=== PATIENT | female | born 1935 | race Caucasian/White ===

== ENCOUNTER → 2024-01-29 11:28 | Outpatient (REF) | payer MEDICARE, OTHER, SELFPAY | LOC: HWRAD 11:28 | PROVIDERS: ATTENDING PHYSICIAN Internal Medicine Critical Care Medicine; FAMILY PHYSICIAN Nurse Practitioner Adult Health | DX: R06.09 Other forms of dyspnea (principal) | CPT/HCPCS: 71250 ==

== ENCOUNTER 2024-08-20 06:11 | Day surgery (SDC) | payer MEDICARE, OTHER, SELFPAY ==
[2024-08-01 10:43] VITALS: BMI 29.0
[2024-08-01 10:45] LABS: Hematocrit 37.5 % (37.0-47.0); Hemoglobin 12.5 g/dL (12.0-16.0); Mean Corp Hgb Conc. 33.3 g/dL (33.0-37.0); Mean Corpuscular Hgb 30.6 pg (27.0-31.0); Mean Corpuscular Volume 91.7 fL (81.0-99.0); Mean Platelet Volume 10.3 fL (7.4-10.4); Platelet Count 251 10^3/uL (130-400); Red Blood Cell Count 4.09 10^6/uL (4.20-5.40); Red Cell Dist. Width 14.1 % (11.5-14.5); White Blood Cell Count 8.4 10^3/uL (4.8-10.8)
[2024-08-01 11:20] LABS: ALT (SGPT) 21 U/L (0-35); AST (SGOT) 27 U/L (14-36); Albumin 4.5 g/dl (3.5-5.0); Alkaline Phosphatase 65 U/L (38-126); Blood Urea Nitrogen 35 mg/dl (7-17); Carbon Dioxide 33 mmol/L (22-30); Chloride 100 mmol/L (98-107); Estimated Creatinine Clearance 45 ml/min; Glucose 84 mg/dl (70-99); Potassium 4.3 mmol/L (3.5-5.1); Sodium 143 mmol/L (135-145); Total Bilirubin 0.6 mg/dl (0.2-1.3); Total Protein 7.4 g/dl (6.3-8.2); eGFR > 60.00
[2024-08-01 11:46] LABS: Glycohemoglobin (HgbA1c) 5.2 % (4.0-5.6)
--- NOTE | 2024-08-06 15:14 | VNURNOTE ---
[facility] liaison called patient on both home and cell numbers. No answer. Left message requesting call back. SDS 08/20. Referral placed in [facility].
--- NOTE | 2024-08-06 15:27 | VNURNOTE ---
Patient is scheduled for an elective R GISSELL on 08/20/24- she is a same day patient with Dr Nance. Spoke with patient prior to surgery. Introduced role of [facility] Liaison. Patient reports that she lives alone in a rancher home.
No steps to enter, she has a ramp.
She has a raised toilet seat, cane and is obtaining a rolling walker and hip kit.
PCP is Dr Jes Miranda.
Discussed [facility] joint protocol and post surgical plans.
Reviewed that she will have VN services initially and will then start outpatient PT.
Patient has not scheduled outpatient PT yet.
Patient is in agreement with plan and states that her daughter will be home with her. Advised to bring RW day of surgery. Referral in [facility].
Plan: [facility] per [facility] joint protocol then outpt PT TBD
[2024-08-14 13:55] VITALS: BMI 29.0
[2024-08-20] VITALS (15 sets, daily range): BP systolic 83–156; BP diastolic 38–91; PULSE 99; O2SAT 98; BMI 29.0
[2024-08-20] MEDS: CELEBREX 200 MG PO (07:21)
[2024-08-20] MEDS: TYLENOL 650 MG PO (07:21)
--- NOTE | 2024-08-20 08:30 | W.DS.TRANS ---
DC Summary - Network Field Engineer
-
Discharge Instructions:
Discharge Diagnosis/Procedures R GISSELL Dr. Nance 08/20/24
Diet As tolerated
Activity With Walker
Driving Restrictions No driving
Bathing Restrictions OK to Shower
Instructions:
Stand-Alone Forms: SDS Total Hip and Knee D/C
Changes to Home Medications: Yes
Discharge Medications:
DC Medications w/original date entered in [facility]
amlodipine 5 mg tablet 5 mg PO DAILY 08/14/24
cholecalciferol (vitamin D3) 25 mcg (1,000 unit) tablet (Vitamin D3) 25 mcg PO DAILY 08/14/24
furosemide 40 mg tablet 40 mg PO DAILY 08/14/24
levothyroxine 75 mcg tablet 75 mcg PO QPM 08/14/24
metoprolol tartrate 25 mg tablet 25 mg PO BID 08/14/24
omeprazole 20 mg delayed release,disintegrating tablet 20 mg PO DAILY 08/14/24
simvastatin 10 mg tablet 10 mg PO Q48H 08/14/24
acetaminophen 500 mg tablet 1,000 mg (2 x 500 mg) PO QID #0 tabs 08/20/24
aspirin 325 mg tablet 325 mg PO DAILY blood clot prevention #1 tab 08/20/24
celecoxib 100 mg capsule 100 mg PO BID Anti-inflammatory #14 caps 08/20/24
dexamethasone 4 mg tablet 4 mg PO BID inflammation #6 tabs 08/20/24
docusate sodium 100 mg capsule (Colace) 100 mg PO BID stool softner #1 cap 08/20/24
losartan 100 mg tablet 100 mg PO DAILY #0 tabs 08/20/24
magnesium hydroxide 400 mg/5 mL oral suspension (Milk of Magnesia) 30 ml PO HS PRN Constipation #1 mL 08/20/24
mupirocin 2 % topical ointment 1 applic topical BID 08/20/24
ondansetron 4 mg disintegrating tablet 4 mg PO Q6H PRN n/v #20 tabs 08/20/24
oxycodone 5 mg tablet 5 mg PO Q6H PRN 1 tab moderate pain, 2 tabs severe pain #30 tabs 08/20/24
sennosides 8.6 mg tablet (Senokot) 17.2 mg (2 x 8.6 mg) PO BID laxative #2 tabs 08/20/24
Home Medication Changes
acetaminophen 500 mg tablet 1,000 mg (2 x 500 mg) PO QID #0 tabs 08/20/24
aspirin 325 mg tablet 325 mg PO DAILY blood clot prevention #1 tab 08/20/24
celecoxib 100 mg capsule 100 mg PO BID Anti-inflammatory #14 caps 08/20/24
dexamethasone 4 mg tablet 4 mg PO BID inflammation #6 tabs 08/20/24
docusate sodium 100 mg capsule (Colace) 100 mg PO BID stool softner #1 cap 08/20/24
losartan 100 mg tablet 100 mg PO DAILY #0 tabs 08/20/24
magnesium hydroxide 400 mg/5 mL oral suspension (Milk of Magnesia) 30 ml PO HS PRN Constipation #1 mL 08/20/24
mupirocin 2 % topical ointment 1 applic topical BID 08/20/24
ondansetron 4 mg disintegrating tablet 4 mg PO Q6H PRN n/v #20 tabs 08/20/24
oxycodone 5 mg tablet 5 mg PO Q6H PRN 1 tab moderate pain, 2 tabs severe pain #30 tabs 08/20/24
sennosides 8.6 mg tablet (Senokot) 17.2 mg (2 x 8.6 mg) PO BID laxative #2 tabs 08/20/24
Pending Results: No
[2024-08-20] MEDS: ANCEF 5 IV (12:39)
[2024-08-20] MEDS: TYLENOL 1000 MG PO (12:52)
== END 2024-08-20 13:30 | disposition home or self-care (01) ==
LOC: SDS 06:11
PROVIDERS: ATTENDING PHYSICIAN Orthopaedic Surgery; FAMILY PHYSICIAN Nurse Practitioner Adult Health; REFERRING PHYSICIAN Student in an Organized Health Care Education/Training Program
PROC: 0SR90JZ Replacement of Right Hip Joint with Synthetic Substitute, Open Approach (ICD-10-PCS; 2024-08-20)
DX: M16.11 Unilateral primary osteoarthritis, right hip (principal)
CPT/HCPCS: 27130; 36415; 73502; 80053; 83036; 85027; 87070; 97116; 97162; C1776

== ENCOUNTER → 2024-10-09 10:13 | Outpatient (REF) | payer MEDICARE, OTHER, SELFPAY | LOC: HWRCS 10:13 | PROVIDERS: ATTENDING PHYSICIAN Student in an Organized Health Care Education/Training Program; FAMILY PHYSICIAN Internal Medicine | DX: I35.0 Nonrheumatic aortic (valve) stenosis (principal) | CPT/HCPCS: 93306 ==

== ENCOUNTER → 2025-01-15 12:35 | Outpatient (REF) | payer MEDICARE, OTHER, SELFPAY ==
[2025-01-15 16:51] LABS: ALT (SGPT) 17 U/L (0-35); AST (SGOT) 23 U/L (14-36); Albumin 4.4 g/dl (3.5-5.0); Alkaline Phosphatase 63 U/L (38-126); Blood Urea Nitrogen 35 mg/dl (7-17); Carbon Dioxide 30 mmol/L (22-30); Chloride 105 mmol/L (98-107); Glucose 98 mg/dl (70-99); HDL Cholesterol 73 mg/dl; LDL Cholesterol, Calculated 69 mg/dl; Potassium 5.2 mmol/L (3.5-5.1); Sodium 144 mmol/L (135-145); Total Bilirubin 0.7 mg/dl (0.2-1.3); Total Cholesterol 161 mg/dl (50-199); Total Protein 7.2 g/dl (6.3-8.2); Triglyceride 98 mg/dl (10-149); Very Low Density Lipoprotein 19 mg/dl (0-30); eGFR 48.63
[2025-01-15 17:20] LABS: TSH 1.12 uIU/ml (0.47-4.68)
== END ==
LOC: HWRAD 12:35
PROVIDERS: ATTENDING PHYSICIAN Internal Medicine Critical Care Medicine; FAMILY PHYSICIAN Nurse Practitioner Adult Health
DX: R91.8 Other nonspecific abnormal finding of lung field (principal); E03.9 Hypothyroidism, unspecified; E78.2 Mixed hyperlipidemia
CPT/HCPCS: 36415; 71250; 80053; 80061; 84443

== ENCOUNTER → 2025-04-24 10:22 | Outpatient (REF) | payer MEDICARE, OTHER, SELFPAY ==
[2025-04-24 11:42] LABS: Hematocrit 33.0 % (37.0-47.0); Hemoglobin 11.3 g/dL (12.0-16.0); Mean Corp Hgb Conc. 34.2 g/dL (33.0-37.0); Mean Corpuscular Volume 90.7 fL (81.0-99.0); Nucleated Red Blood Cells % 0 %; Platelet Count 245 10^3/uL (130-400); Red Cell Dist. Width 14.2 % (11.5-14.5)
[2025-04-24 12:33] LABS: Blood Urea Nitrogen 30 mg/dl (7-17)
== END ==
LOC: HWLAB 10:22
PROVIDERS: ATTENDING PHYSICIAN Internal Medicine Critical Care Medicine; FAMILY PHYSICIAN Nurse Practitioner Adult Health; REFERRING PHYSICIAN Physician Assistant
DX: R93.89 Abnormal findings on diagnostic imaging of other specified body structures (principal); M47.14 Other spondylosis with myelopathy, thoracic region; J43.1 Panlobular emphysema
CPT/HCPCS: 36415; 82565; 84520; 85025; 93005

== ENCOUNTER 2025-07-30 10:45 | Outpatient (RCR) | payer MEDICARE, OTHER, SELFPAY | END 2025-07-30 23:59 | disposition home or self-care (01) | LOC: PURB 10:45 | PROVIDERS: ATTENDING PHYSICIAN Internal Medicine Critical Care Medicine; FAMILY PHYSICIAN Nurse Practitioner Adult Health | DX: J43.1 Panlobular emphysema (principal) | CPT/HCPCS: G0237; G0239 ==

== ENCOUNTER 2025-09-08 11:00 | Outpatient (RCR) | payer MEDICARE, OTHER, SELFPAY | END 2025-09-08 23:59 | disposition home or self-care (01) | LOC: PURB 11:00 | PROVIDERS: ATTENDING PHYSICIAN Internal Medicine Critical Care Medicine; FAMILY PHYSICIAN Nurse Practitioner Adult Health | DX: J43.1 Panlobular emphysema (principal) | CPT/HCPCS: G0239 ==